=== PATIENT | female | born 1995 | race Two or more races ===

== ENCOUNTER 2017-06-24 12:22 | Emergency (ER) | payer SELFPAY ==
[~2017-06-24] VITALS: Ht 165.1 cm; Wt 122.0 kg
[2017-06-24] MEDS ORDERED: Sodium Chloride 500ML 500 ML IV ONE ×2 (12:27→14:00)
[2017-06-24] MEDS ORDERED: Albuterol ud Inhalation HHN ONE (12:30)
[2017-06-24] MEDS ORDERED: Ipratropium 0.02% Inh Soln 2.5ml UD HHN ONE (12:30)
[2017-06-24] MEDS ORDERED: Solu-MEDROL 125mg Inj IVP ONE (12:30)
[2017-06-24 12:32] VITALS: BP 129/72
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
[2017-06-24] MEDS ORDERED: Morphine Sulfate 2mg/ml Inj IVP ONE (13:15)
[2017-06-24 13:36] LABS: BASOPHILS % (AUTO) 0.6 % (0.0-2.0); EOSINOPHILS % (AUTO) 0.6 % (0.0-3.0); HEMATOCRIT 39.8 % (37.0-47.0); HEMOGLOBIN 13.4 G/DL (12.0-16.0); LYMPHOCYTES % (AUTO) 29.5 % (20.0-45.0); MEAN CORPUSCULAR VOLUME 85 FL (80-99); MONOCYTES % (AUTO) 5.6 % (1.0-10.0); NEUTROPHILS % (AUTO) 63.7 % (45.0-75.0); PLATELET COUNT 294 K/UL (150-450); RED BLOOD COUNT 4.69 M/UL (4.20-5.40); WHITE BLOOD COUNT 8.2 K/UL (4.8-10.8)
[2017-06-24 14:37] LABS: ALANINE AMINOTRANSFERASE 27 U/L (12-78); ALBUMIN 3.8 G/DL (3.4-5.0); ALBUMIN/GLOBULIN RATIO 0.8 (1.0-2.7); ALKALINE PHOSPHATASE 67 U/L (46-116); ANION GAP 13 mmol/L (5-15); ASPARTATE AMINO TRANSFERASE 16 U/L (15-37); BILIRUBIN,TOTAL 0.4 MG/DL (0.2-1.0); BLOOD UREA NITROGEN 11 mg/dL (7-18); CALCIUM 8.6 MG/DL (8.5-10.1); CARBON DIOXIDE 23 MMOL/L (21-32); CHLORIDE 103 MMOL/L (98-107); CKMB 0.5 NG/ML (0.0-3.6); CREATINE KINASE 77 U/L (26-308); SODIUM 139 MMOL/L (136-145)
[2017-06-24 14:44] LABS: POTASSIUM 2.6 MMOL/L (3.5-5.1)
[2017-06-24 15:00] VITALS: BP 101/57
--- NOTE | 2017-06-24 15:49 | Diagnostic Imaging Report ---
ndication: Chest pain Technique: IV administration nonionic contrast. Spiral acquisitions obtained from the lung bases to the lung apices. Multiplanar and 3-D reconstructions were generated. Total dose length product 1049.19 mGycm. CTDIvol(s) 40.33 mGy. Dose reduction achieved using automated exposure control Comparison: none Findings: Pulmonary arterial opacification is suboptimal, and peripheral emboli cannot be excluded with any confidence. No gross large vessel central pulmonary embolus demonstrated. Normal caliber pulmonary arteries. No evidence of thoracic aortic aneurysm or dissection. No evidence of right ventricular dilatation. Normal heart size The lungs are clear. No infiltrates, effusions, congestion, nodules, or masses are demonstrated. No pericardial effusion. No mediastinal or hilar mass or adenopathy. No axillary or chest wall mass or adenopathy. The included upper abdominal anatomy is unremarkable Impression: Suboptimal opacification of pulmonary arteries. No gross large vessel central pulmonary embolus, but smaller peripheral pulmonary emboli cannot excluded with any confidence. Otherwise unremarkable exam. No gross acute thoracic pathology demonstrated. The CT scanner at [facility] is accredited by the [employer] and the scans are performed using protocols designed to limit radiation exposure to as low as reasonably achievable to attain images of sufficient resolution adequate for diagnostic evaluation.
[2017-06-24] MEDS ORDERED: Morphine Sulfate 4mg/ml Inj IVP ONE (16:00)
--- NOTE | 2017-06-24 17:03 | Diagnostic Imaging Report ---
Indication: Chest pain Technique: One view of the chest Comparison: none Findings: Lungs and pleural spaces are clear. Heart size is normal Impression: No acute process
[2017-06-24 17:34] VITALS: BP_SYST 101; BP_SYST 91; BP_DIAS 57; BP_DIAS 59
--- NOTE | 2017-06-27 21:31 | Cardiology Report ---
APPROVED REPORT EKG Measurement Heart [id number] NM [id number] Sinus tachycardia Inferior infarct, age undetermined Prolonged QTc Abnormal ECG
== END 2017-06-24 17:35 | disposition home or self-care (01) ==
LOC: EDBD 12:22 → EMR 13:03 → EDBEDREQ 16:29 → CANBEDREQ 17:18 → EMR 17:35
DX: R06.03 Acute respiratory distress (principal); R07.9 Chest pain, unspecified; E87.6 Hypokalemia; J45.909 Unspecified asthma, uncomplicated
CPT/HCPCS: 36415; 71045; 71275; 80053; 81025; 82550; 82553; 83690; 83880; 85025; 85379; 93005; 94640; 94664; 96361; 96374; 96375; 99284; J2270; J2930; J7040; Q9967; J8499